=== PATIENT | female | born 1940 | race Caucasian/White ===

== ENCOUNTER 2020-10-23 17:36 | Emergency (ER) | payer OTHER ==
[~2020-10-23] VITALS: Ht 157.5 cm; Wt 63.5 kg
[~2020-10-23 17:36] MED LIST: AMARYL4 MG PO; ANTIVERT25 MG PO; ASPIRIN EC81 M1 PO; BENADRYL25 MG PO; CALCIUM 600 +1 EAC9; CLONAZEPAM; CLONAZEPAM 0.50.5 M1 PO; ENOXAPARIN40 MG/0.1 SUBQ; GLUMETZA500 PO; HYDROCODON-ACE1 EAC7 PO; LEVEMIR SQ; LISINOPRIL10 MG; LOPRESSOR 50 MG50 M1; LOPRESSOR25 PO; LOVASTATIN 20 M20 MG PO; VITAMIN D1000 UNI1; ZOCOR 10 MG TAB10 MG
[2020-10-23 18:09] LABS: ABSOLUTE BASOPHILS 0.1 thou/uL (0.0-0.2); ABSOLUTE EOSINOPHILS 0.2 thou/uL (0.0-0.7); ABSOLUTE LYMPHOCYTES 2.2 thou/uL (0.8-5.3); ABSOLUTE MONOCYTES 0.6 thou/uL (0.0-1.2); ABSOLUTE NEUTROPHILS 6.6 thou/uL (1.6-8.1); BASOPHILS 0.6 %; EOSINOPHILS 2.5 %; HEMATOCRIT 41.9 % (37.0-47.0); HEMOGLOBIN 13.9 gm/dL (12.0-15.0); LYMPHOCYTES 22.4 %; MCHC 33.2 g/dL (28.0-37.0); MCV 84.4 fL (80.0-100.0); MONOCYTES 6.3 %; MPV 8.2 fl. (7.2-11.1); NUCLEATED RBCS 0 /100WBC; PLATELET COUNT* 257 thou/uL (150-400); POLYS 68.2 %; RBC 4.96 mil/uL (4.20-5.00); RDW-CV 14.1 % (10.5-14.5); WBC 9.7 thou/uL (4.0-11.0)
[2020-10-23 18:19] LABS: CALCIUM 9.2 mg/dL (8.5-10.1); POTASSIUM 4.6 mmol/L (3.5-5.1)
[2020-10-23 18:22] LABS: APTT 24.4 Seconds (25.0-31.3); PROTIME 10.8 Seconds (9.20-11.50)
[2020-10-23 18:29] LABS: TOTAL BILIRUBIN 0.4 mg/dL (<0.1-1.0); TOTAL PROTEIN 7.6 g/dL (6.4-8.2)
[2020-10-23 20:30] VITALS: BP 152/69
--- NOTE | 2020-10-24 16:31 | EKG ---
[place] [address] ELECTROCARDIOGRAM REPORT Name: SOULEYMANE CARLOS Room: [facility]#: [id number] Admission: 10/23/20 Attend Phys: Discharge: 10/23/20 Date of : 38 Date of Service: 10/23/20 1749 Report #: [id number] THIS REPORT FOR: //name// [facility] ED Test Date: 2020-10-23 Test Time: 17:49:51 Pat Name: SOULEYMANE CARLOS Department: Room: Gender: [employer]: CCD : 1940 Requested By: Freeman Ugarte Order Number: [id number] MD: James Garcia Measurements Intervals [facility] Rate: 93 P: 78 ME: 188 QRS: -58 QRSD: 120 T: 105 QT: 383 QTc: 477 Interpretive Statements Sinus rhythm poor r wave progression left axis LVH with IVCD, LAD and secondary repol abnrm Borderline prolonged QT interval Compared to ECG 03/05/2017 18:42:36 no change Electronically Signed On 10-24-2020 16:31:12 ASSOCIATE SPA DIRECTOR by James Garcia [email or web address] <ELECTRONICALLY SIGNED> By: James Garcia MD, [facility] 10/24/20 1631 1749 1749 James Garcia MD, [facility] /EPI
== END 2020-10-23 20:30 | disposition home or self-care (01) ==
LOC: M.ERS 17:36
PROVIDERS: Nurse Practitioner Family
DX: R55 Syncope and collapse (principal); E11.65 Type 2 diabetes mellitus with hyperglycemia; I10 Essential (primary) hypertension; E78.5 Hyperlipidemia, unspecified; Z79.82 Long term (current) use of aspirin; Z79.4 Long term (current) use of insulin; Z79.899 Other long term (current) drug therapy; Z20.828 Contact with and (suspected) exposure to other viral communicable diseases